=== PATIENT | female | born 1970 | race African-American/Black ===

== ENCOUNTER 2018-10-30 02:37 | Emergency (ER) | payer OTHER ==
[~2018-10-30] VITALS: Ht 170.2 cm; Wt 139.7 kg
[~2018-10-30 02:37] MED LIST: COUMADIN 1MG TAB1 M1 PO; COUMADIN 5 MG TA5 M1 PO; LOVENOX SQ; NOHOMEMEDICATIONS; NORCO 5-325 TA1 EACH PO; NORVASC10 MG PO; PRILOSEC 20 MG20 MG PO
[2018-10-30] MEDS ORDERED: ANTIVERT25 MG PO (03:45)
[2018-10-30] MEDS ORDERED: ZOFRAN ODT4 MG PO (03:45)
[2018-10-30 03:50] VITALS: BP 141/84
== END 2018-10-30 03:51 | disposition home or self-care (01) ==
LOC: ER 02:37
DX: R42 Dizziness and giddiness (principal); H61.21 Impacted cerumen, right ear

== ENCOUNTER → 2019-05-15 | Outpatient (CLI) | payer OTHER ==
[~2019-05-15] MED LIST changes: +ANTIVERT25 MG PO; +ZOFRAN ODT4 MG PO
--- NOTE | 2019-05-23 22:56 | SLE ---
[facility] [place] [address] POLYSOMNOGRAPHY STUDY Name: SAURABH TAVERA Room #: REG [facility]#: [id number] Admission: 05/15/19 Attend Phys: Galen Mejia MD Discharge: Date of : 66 Report #: [id number] THIS REPORT FOR: //name// CC: Galen Rocah MD DATE OF SERVICE: 05/15/2019 HOME SLEEP STUDY ATTENDING PHYSICIAN: Dr. Emiliano Roach. The patient is a 48-year-old who weighs 314 pounds with a BMI of 52.2. The patient had severe subjective hypersomnia with an [employer] score of 19. The patient underwent home sleep study performed at [facility]. Total recording time was 537 minutes. During the night study, the patient had 631 obstructive apneas, 8 central apneas, no mixed apneas and 65 hypopneas. The patient's apnea hypopnea index was 84 per hour. Supine index 67 per hour. Nocturnal oximetry study revealed an average oxygen saturation of 92% with lowest of 74%. 125 minutes were spent in oxygen saturation of less than 85%. EKG monitoring revealed mean heart rate of 81 beats per minute. IMPRESSION: 1. Severe sleep apnea-hypopnea syndrome at an AHI of 84 per hour. 2. Moderate to severe nocturnal hypoxia secondary to obstructive sleep apnea. RECOMMENDATIONS: 1. The patient should return to the sleep lab for in-lab titration study due to the severity of sleep apnea and hypoxia. 2. Once the patient is optimally treated, then follow up in 4-6 weeks to assess compliance with CPAP and to document clinical improvement. 3. Weight loss is strongly advised. 4. Avoid [employer] depressants. 5. Cautioned regarding driving until symptoms of sleep apnea resolve with the use of CPAP. <ELECTRONICALLY SIGNED> By: Galen Mejia MD 05/23/19 [id number] Galen Mejia MD /nt
== END ==
LOC: SLEEPLAB 05-07 09:19
DX: G47.33 Obstructive sleep apnea (adult) (pediatric) (principal); G47.34 Idiopathic sleep related nonobstructive alveolar hypoventilation